=== PATIENT | female | born 1970 | race African-American/Black ===

== ENCOUNTER 2019-01-30 10:35 | Emergency (ER) | payer OTHER ==
[~2019-01-30] VITALS: Ht 165.1 cm; Wt 72.7 kg
[~2019-01-30 10:35] MED LIST: LEVE250T2 PO; PHEN32.43 PO
[2019-01-30 12:37] VITALS: BP 118/71
== END 2019-01-30 12:43 | disposition home or self-care (01) ==
LOC: EMS 10:36
DX: Z76.0 Encounter for issue of repeat prescription (principal); K21.9 Gastro-esophageal reflux disease without esophagitis